=== PATIENT | male | born 1970 | race Caucasian/White ===

== ENCOUNTER 2021-09-25 18:35 | Outpatient (REF) | payer BC, SELFPAY ==
[2021-09-25 14:59] LABS: Anion Gap 10.5 mmol/L (3-11); BUN 18 mg/dL (7-18); CO2 25.5 mmol/L (21.0-32.0); CREATININE 1.2 mg/dL (0.70-1.30); Calcium 9.1 mg/dL (8.5-10.1); Calculated LDL 167 mg/dL (<100); Chloride 104 mmol/L (98-107); Cholesterol 240 mg/dL (<200); Glucose 83 mg/dL (74-106); HDL Cholesterol 57 mg/dL (40-60); Potassium 4.4 mmol/L (3.5-5.1); Sodium 140 mmol/L (136-145); Triglyceride 81 mg/dL (<150)
[2021-09-25 23:07] LABS: PSA, Screening 1.4 ng/mL (<=3.5)
[2021-09-26 09:12] LABS: HIV-1/2 Ag & Ab Screen Negative (Negative)
[2021-09-28 11:31] LABS: Hepatitis C Ab w Rflx HCV PCR Negative (Negative)
== END 2021-09-25 18:36 | disposition home or self-care (01) ==
LOC: NCHCN 18:35
PROVIDERS: PCP Family Medicine; Visit Provider Physician Assistant
DX: R03.0 Elevated blood-pressure reading, without diagnosis of hypertension (principal); Z12.5 Encounter for screening for malignant neoplasm of prostate; Z11.4 Encounter for screening for human immunodeficiency virus [HIV]; Z11.59 Encounter for screening for other viral diseases; Z00.00 Encounter for general adult medical examination without abnormal findings
CPT/HCPCS: 80048; 80061; 84153; 86803; 87389

== ENCOUNTER 2021-10-20 09:54 | Outpatient (CLI) | payer BC, SELFPAY ==
--- NOTE | 2021-10-20 09:45 | DI.RAD_ITS ---
Exam(s) XR FEMUR LT EXAM: XR FEMUR LT CLINICAL HISTORY: injury. TECHNIQUE: 2D digital imaging was performed. COMPARISON: No exams were available for comparison FINDINGS: No evidence of acute fracture nor dislocation of the left femur. There is cystic structures in the upper femoral neck, probably synovial pits. IMPRESSION: No fracture evident. DATA REPOSITORY: RADIATION DOSE DELIVERED:
== END 2021-10-20 09:55 | disposition home or self-care (01) ==
LOC: DIORS 09:55
PROVIDERS: PCP Physician Assistant; Referring Provider Physician Assistant; Visit Provider Physician Assistant Surgical
DX: S76.112A Strain of left quadriceps muscle, fascia and tendon, initial encounter
CPT/HCPCS: 73552

== ENCOUNTER → 2021-11-03 01:24 | Outpatient (CLI) | payer BC, SELFPAY | PROVIDERS: PCP Physician Assistant; Visit Provider Physician Assistant Surgical ==

== ENCOUNTER 2021-11-10 19:50 | Outpatient (REF) | payer BC, SELFPAY ==
[2021-11-10 14:33] LABS: HCT 42.4 % (40.0-50.0); HGB 13.9 g/dL (13.5-17.5); MCH 27.7 pg (27.0-33.0); MCHC 32.8 % (32.0-36.0); MCV 85 fL (80-95); MPV 11.9 fL (8.0-11.0); Platelet Count 165 10^3/uL (130-400); RBC 5.01 10^6/uL (4.36-5.78); RDW 13.4 % (11.8-14.1); RDW-SD 41.9 fL; WBC 3.49 10^3/uL (4.4-10.8)
[2021-11-10 16:21] LABS: ALT 144 U/L (16-63); AST 116 U/L (15-37); Albumin 3.4 g/dL (3.4-5.0); Alkaline Phosphatase 159 U/L (46-116); BUN 16 mg/dL (7-18); Bilirubin, Total 0.5 mg/dL (0.2-1.0); CREATININE 1.1 mg/dL (0.70-1.30); Calcium 8.6 mg/dL (8.5-10.1); Chloride 101 mmol/L (98-107); Glucose 102 mg/dL (74-106); Potassium 3.6 mmol/L (3.5-5.1); Sodium 135 mmol/L (136-145); Total Protein 7.1 g/dL (6.4-8.2)
[2021-11-11 10:55] LABS: Lyme Ab w Rflx to Lyme Confirm Negative (Negative)
[2021-11-11 11:17] LABS: COVID-19 RT-PCR UVMMC Result Negative (Negative)
[2021-11-12 13:10] LABS: B. miyamotoi PCR Negative (Negative); Babesia divergens/MO-1 Negative (Negative); Babesia duncani Negative (Negative); Babesia microti Negative (Negative); Ehrlichia chaffeensis Negative (Negative); Ehrlichia ewingii/canis Negative (Negative); Ehrlichia muris eauclairensis Negative (Negative)
[2021-11-12 13:53] LABS: Anaplasma phagocytophilum Positive (Negative)
== END 2021-11-10 19:51 | disposition home or self-care (01) ==
LOC: NCHCN 19:50
PROVIDERS: PCP Physician Assistant; Visit Provider Physician Assistant
DX: R50.9 Fever, unspecified (principal); Z20.822 Contact with and (suspected) exposure to COVID-19
CPT/HCPCS: 80053; 85027; 87798; U0003; 86618

== ENCOUNTER 2022-03-07 11:19 | Emergency (ER) | payer BC, SELFPAY ==
[2022-03-07 11:24] VITALS: BP 150/108; PULSE 70; RESP 18; TEMP 36.5; O2SAT 98
--- NOTE | 2022-03-07 11:59 | ED.GENADUL_ITS ---
Discharge Plan Disposition Patient Disposition: HOME Condition: Improving Discharge Details Chief Complaint: Laceration Clinical Impression: Hand laceration Primary Care Provider: Yared Cabrales ED Provider: Miguel Doran Home Meds and New Rx's Prescriptions: No Action lisinopril 10 mg tablet 10 mg PO DAILY pantoprazole 40 mg tablet,delayed release (DR/EC) 40 mg PO DAILY ibuprofen [Motrin IB] 200 mg tablet 200 mg PO Q6H PRN Excedrin Migraine 250-250-65 mg tablet 1 tab PO ONCE Discharge Instructions Instructions: Laceration (ED) Additional Instructions: Please keep wound clean and dry. Please return to the emergency department he develop any signs of infection, bleeding, poor healing or other worsening symptoms. Medical Decision Making 51-year-old male sustained laceration to right hand while working, hemostatic with pressure, currently under a bandage, upon examination laceration is overlying MCP joint of fifth digit of right hand, on the dorsal aspect of his hand, hemostatic no foreign bodies, linear superficial in nature, patient has full flexion and extension of all fingers sensation in median radial ulnar nerve distribution intact, warm well perfused extremity, no tendon involvement on examination, wound was irrigated with normal saline, given not gaping superficial laceration Steri-Strips were applied to site. Home care instructions and return precautions given. Patient cannot receive the Tdap booster as he is allergic. HPI General Date/Time Provider Initiated Documentation: 03/07/22 11:59 . HPI Narrative: 51-year-old male sustained laceration to his right hand while working today, applied dressing hemostatic, given location of wound his neighbor who is in the medical profession instructed him to come to the emergency department to ensure that he did not have any tendon involvement Related Data Home Medications Medication Instructions Recorded Confirmed caqplah-ailmcesfwhtit-vsghybmu 250 1 tab PO ONCE 10/01/21 03/07/22 mg-250 mg-65 mg tablet (Excedrin Migraine) ibuprofen 200 mg tablet (Motrin IB) 200 mg PO Q6H PRN 10/01/21 03/07/22 lisinopril 10 mg tablet 10 mg PO DAILY 10/01/21 03/07/22 pantoprazole 40 mg tablet,delayed 40 mg PO DAILY 10/01/21 03/07/22 release Allergies Allergy/AdvReac Type Severity Reaction Status Date / Time No Known Allergies Allergy Unverified 10/20/21 09:34 General Stated Complaint: Laceration MARIA GUADALUPE: 4 Review of Systems Narrative: Review of Systems Constitutional: negative Eyes: negative ENT: negative Cardiovascular: negative Respiratory: negative Gastrointestinal: negative : negative Musculoskeletal: negative Skin: Hand laceration Neurologic: negative Psych: negative PFSH All Active Problems (Updated 03/07/22 @ 12:03 by Miguel Doran MD) Hand laceration (Acute) Quadriceps muscle rupture (Acute 08/13/21) Medical History (Updated 03/07/22 @ 12:03 by Miguel Doran MD) Elevated blood pressure reading GERD (gastroesophageal reflux disease) Migraine Social History Smoking/Tobacco Use Status: Never Smoking risk assessment performed?: Yes Alcohol Intake: former Drug use: Never Substance use type: does not use Current gender identity: male Do you feel safe at home: Yes Do you feel safe in your relationship?: Yes Exam Narrative Exam Narrative: Physical Examination General: alert, awake, cooperative, resting comfortably, no acute distress HEENT: normocephalic, atraumatic; PERRL, EOM intact, conjunctiva normal; no nasal discharge; moist mucous membranes, oral and pharyngeal mucosa normal, tolerating secretions Neck: supple, trachea midline; full ROM Chest: normal to inspection Respiratory: normal respiratory effort, speaking in full sentences, clear to auscultation, no wheezing, rales or rhonchi Cardiac: regular rate, regular rhythm, S1S2 intact, no murmurs rubs or gallops GI: abdomen soft, non-tender, non-distended; no palpable mass or hepatospl enomegaly Skin: no lesions, rashes or trauma appreciated Neuro: AAOx3, normal speech, moving all extremities Extremities: 2 cm linear laceration overlying right fifth MCP, full flexion and extension of all fingers, sensation median radial ulnar nerve distribution intact, hemostatic no foreign bodies, warm well perfused extremities Psych: Appropriate mood and affect Course Vital Signs Vital signs: Vital Signs Temperature 36.5 C 03/07/22 11:24 Pulse 70 03/07/22 11:24 Respiratory Rate 18 03/07/22 11:24 Blood Pressure 150/108 H 03/07/22 11:24 Pulse Oximetry 98 03/07/22 11:24 Temperature 36.5 C 03/07/22 11:24 Temperature Source Tympanic 03/07/22 11:24 Pulse 70 03/07/22 11:24 Respiratory Rate 18 03/07/22 11:24 Respiratory Effort Non-Labored 03/07/22 11:28 Blood Pressure 150/108 H 03/07/22 11:24 Blood Pressure Position Sitting 03/07/22 11:24 Pulse Oximetry 98 03/07/22 11:24 Oxygen Delivery Method Room Air 03/07/22 11:24 Oxygen Flow Rate 0 03/07/22 11:24
[2022-03-07 12:04] VITALS: BP 157/106
== END 2022-03-07 12:10 | disposition home or self-care (01) ==
PROVIDERS: Emergency Provider Emergency Medicine; PCP Physician Assistant
DX: S61.411A Laceration without foreign body of right hand, initial encounter (principal); X58.XXXA Exposure to other specified factors, initial encounter; Y99.0 Civilian activity done for income or pay
CPT/HCPCS: 99281; 99282

== ENCOUNTER 2022-12-17 21:11 | Outpatient (REF) | payer BC, SELFPAY ==
[2022-12-17 16:12] LABS: Anion Gap 7.8 mmol/L (3-11); BUN 19 mg/dL (7-18); CO2 28.2 mmol/L (21.0-32.0); CREATININE 1.2 mg/dL (0.70-1.30); Calcium 8.9 mg/dL (8.5-10.1); Calculated LDL 135 mg/dL (<100); Chloride 103 mmol/L (98-107); Cholesterol 207 mg/dL (<200); Estimated GFR 72.31 (mL/min/1.73m2); Glucose 92 mg/dL (74-106); HDL Cholesterol 52 mg/dL (40-60); Potassium 4.7 mmol/L (3.5-5.1); Sodium 139 mmol/L (136-145); Triglyceride 101 mg/dL (<150)
[2022-12-17 22:19] LABS: PSA, Screening 1.5 ng/mL (<=3.5)
== END 2022-12-17 21:12 | disposition home or self-care (01) ==
LOC: NCHCN 21:11
PROVIDERS: PCP Physician Assistant; Visit Provider Physician Assistant
DX: I10 Essential (primary) hypertension (principal); E78.5 Hyperlipidemia, unspecified; Z12.5 Encounter for screening for malignant neoplasm of prostate
CPT/HCPCS: 80048; 80061; 84153

== ENCOUNTER 2024-08-29 12:07 | Outpatient (REF) | payer BC, SELFPAY ==
[2024-08-29 18:10] LABS: Anion Gap 10.3 mmol/L (3-11); BUN 14 mg/dL (7-18); CO2 27.7 mmol/L (21.0-32.0); CREATININE 1.2 mg/dL (0.70-1.30); Calcium 9.7 mg/dL (8.5-10.1); Chloride 103 mmol/L (98-107); Estimated GFR 71.42 (mL/min/1.73m2); Glucose 87 mg/dL (74-106); Potassium 5.2 mmol/L (3.5-5.1); Sodium 141 mmol/L (136-145)
[2024-08-29 19:38] LABS: Calculated LDL 109 mg/dL (<100); Cholesterol 202 mg/dL (<200); HDL Cholesterol 59 mg/dL (>or=40); Triglyceride 174 mg/dL (<150)
[2024-08-30 09:43] LABS: PSA, Screening 1.4 ng/mL (<=3.5)
== END 2024-08-29 12:08 | disposition home or self-care (01) ==
LOC: NCHCN 12:07
PROVIDERS: PCP Physician Assistant; Visit Provider Physician Assistant
DX: I10 Essential (primary) hypertension (principal); Z12.5 Encounter for screening for malignant neoplasm of prostate
CPT/HCPCS: 80048; 80061; 84153